=== PATIENT | male | born 1970 | race African-American/Black ===

== ENCOUNTER → 2019-08-29 | Outpatient (CLI) | payer OTHER ==
--- NOTE | 2019-08-29 17:32 | RAD ---
CERVICAL SPINE 2-3V History: Neck pain Comparison: None. Findings: 4 views of the cervical spine are submitted. Cervical vertebral body stature and AP alignment are maintained. There is mild narrowing of the C5-6 intervertebral disc space. Atlantoaxial distance is within normal limits. There is adequate alignment of lateral masses C1 relative to C2. Occipital condylar-C1 articulation is maintained. Impression: 1. There is mild C5-6 degenerative disc disease. Electronically signed by: Jluis Mohamud MD (08/29/2019 5:30 PM) [id number]
--- NOTE | 2019-08-30 09:02 | RAD ---
Three-view lumbar spine series Clinical indications: Back and neck pain. FINDINGS: The transverse processes are intact. No compression fracture or discitis or lytic process or anterolisthesis is evident. Mild degenerative endplate spurring without disc space narrowing is seen throughout the lumbar spine. IMPRESSION: No acute compression fracture. Mild degenerative lumbar spondylosis. Electronically signed by: Benito Otoole MD (08/30/2019 8:59 AM) [id number]
== END | disposition home or self-care (01) ==
LOC: PMG 10:19
PROVIDERS: ATTEND Family Medicine
DX: M50.322 Other cervical disc degeneration at C5-C6 level (principal); M47.816 Spondylosis without myelopathy or radiculopathy, lumbar region
CPT/HCPCS: 72040; 72100